=== PATIENT | male | born 1950 | race Caucasian/White ===

== ENCOUNTER 2022-07-19 06:48 | Day surgery (SDC) | payer OTHER ==
[~2022-07-19] VITALS: Ht 165.1 cm; Wt 68.0 kg
[2022-07-19] MEDS ORDERED: fentaNYL CITRATE/PF 100 MCG/2 ML AMP ONE (09:26)
[2022-07-19] MEDS: MIDAZOLAM HCL 5 MG/5 ML VIAL ONE ×2 (10:27→10:30)
[2022-07-19 14:40] VITALS: BP_SYST 118
== END 2022-07-19 12:05 | disposition home or self-care (01) ==
LOC: SDS 06:48 → SMU 06:50 → SDS 12:05
PROVIDERS: ATTEND Internal Medicine
DX: Z12.11 Encounter for screening for malignant neoplasm of colon (principal); E78.00 Pure hypercholesterolemia, unspecified; K57.30 Diverticulosis of large intestine without perforation or abscess without bleeding; K64.8 Other hemorrhoids; R12 Heartburn; Z86.010 Personal history of colon polyps; I10 Essential (primary) hypertension; K29.50 Unspecified chronic gastritis without bleeding; Z79.899 Other long term (current) drug therapy; Z20.822 Contact with and (suspected) exposure to COVID-19
CPT/HCPCS: 36415 ×2; 43239; 45378; 87426; 87081; 88305; 88312; 88313; 99152; 99153; U0003; G0378; J2250; J3010